=== PATIENT | male | born 1945 | race Asian ===

== ENCOUNTER 2020-07-16 19:10 | Emergency (ER) | payer OTHER ==
[~2020-07-16] VITALS: Ht 170.2 cm; Wt 74.8 kg
--- NOTE | 2020-07-16 19:10 | NUR ---
1907 PT BIBA TO BED 10
[2020-07-16 19:22] VITALS: BP 103/63
--- NOTE | 2020-07-16 19:35 | NUR ---
PT NINA, FROM [facility] [place]. PT IS DNR, SON REQUESTED TO HAVE PT TRANSFERRED AND NGT PLACED DUE TO DECREASED APPETITE X3D. PT LETHARGIC, NON-VERBAL, UNABLE TO FOLLOW SIMPLE COMMANDS. PUPILS 3MM, SLUGGISH. + PERIPHERAL PULSES NOTED. NGT PLACED AT THIS TIME. PT NON-COOPERATIVE, ATTEMPTING TO PULL NGT. NO GASTRIC SECRETIONS NOTED. +AIR BOLUS NOTED. XRAY WILL FOLLOW UP. Addendum: 07/16/20 at 2036 by BRENNON ERROR FROM [facility]
--- NOTE | 2020-07-16 20:37 | NUR ---
attempted to call tatiana esquivel to give report. no answer at this time.
--- NOTE | 2020-07-16 21:00 | NUR ---
AWAITING [facility], WILL ARRIVE @ 2300.
--- NOTE | 2020-07-16 21:00 | NUR ---
MULTIPLE ATTEMPTS MADE TO CONTACT BRANDON DUMONT TO GIVE REPORT ON RETURNING PT. NO ANSWER.
--- NOTE | 2020-07-16 21:21 | NUR ---
REPORT GIVEN TO HERMILA JARVIS AT [facility] @ THIS TIME.
[2020-07-16 23:00] VITALS: BP 101/68
--- NOTE | 2020-07-16 23:00 | NUR ---
Patient discharged with v/s stable. Written and verbal after care instructions given and explained. Patient verbalized understanding. Ambulatory with to longterm. All questions addressed prior to discharge. Advised to follow up with PMD.
[2020-07-17] MEDS ORDERED: ASCO500T95 PO (20:44)
[2020-07-17] MEDS ORDERED: ROC2I (20:44)
[2020-07-17] MEDS ORDERED: ATOR20TA PO (20:44)
[2020-07-17] MEDS ORDERED: LEVO0.024 PO (20:44)
[2020-07-17] MEDS ORDERED: POTA10TE30 PO (20:44)
[2020-07-17] MEDS ORDERED: NUTR30LI2 PO (20:44)
[2020-07-17] MEDS ORDERED: DONE10TA37 PO (20:44)
[2020-07-17] MEDS ORDERED: MULT400T5 PO (20:44)
[2020-07-17] MEDS ORDERED: CARB1TAB37 PO (20:44)
[2020-07-17] MEDS ORDERED: CALC1TAB72 PO (20:44)
[2020-07-17] MEDS ORDERED: MAGN400S60 PO (20:44)
[2020-07-17] MEDS ORDERED: FURO-572 PO (20:44)
[2020-07-17] MEDS ORDERED: DOCU-299 PO (20:44)
[2020-07-17] MEDS ORDERED: ZINC220C28 PO (20:44)
== END 2020-07-16 23:00 ==
LOC: MED 19:10
DX: R62.7 Adult failure to thrive (principal); G20 Parkinson's disease; Z46.59 Encounter for fitting and adjustment of other gastrointestinal appliance and device
CPT/HCPCS: 43246; 71045; 99284; Q0092; 43760